=== PATIENT | female | born 1940 | race Caucasian/White ===

== ENCOUNTER 2017-12-15 14:12 | Outpatient (CLI) | payer MEDICARE ==
--- NOTE | 2017-12-15 15:24 | RAD ---
FOUR VIEWS LUMBAR SPINE: INDICATIONS: Low back pain. Difficulty walking for long periods of time. FINDINGS: There is levoscoliosis of the lumbar spine. There is multilevel disk degenerative disease. There is mild retrolisthesis of L3-L4, L2-L3, and L1-L2. This is slight accentuated with extension but does not appear to reduce with flexion. There is suggested aneurysmal dilatation of the abdominal aorta, measuring 3.7 cm. CTA abdomen was performed on 10/23/2015 and demonstrated an infrarenal abdominal a mike measuring to 2.8 cm. There is diffuse osteopenia. IMPRESSION: 1. Moderate multilevel spondylosis of the lumbar spine. 2. Retrolisthesis of L3 on L4, L2 on L3, and L1 on L2 that is accentuated with extension but does no t completely reduce with flexion. 3. Worsening infrarenal abdominal aortic aneurysm, measuring up to 3.7 cm. CODE T POS: [facility]
--- NOTE | 2017-12-15 15:48 | MRI ---
MRI OF LUMBAR SPINE WITHOUT CONTRAST 12/15/17 INDICATION: Low back pain for ten years with difficulty walking. COMPARISON: Lumbar spine radiographs dated 12/15/17. FINDINGS: There is slight retrolisthesis of L3 on L4, L2 on L3 and L1 on L2. 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 The conus is seen to terminate at approximately T12-L1. There is mild aneurysmal dilatation of the infrarenal abdominal aorta measuring approximately 3.1 cm in size. There are small bilateral maria e l cysts. At L5-S1, there is moderate to severe bilateral facet joint degenerative change. There is no apprecia ble central canal or neural foraminal narrowing. At L4-5, there is a broad based bulge with a superimposed right paracentral right foraminal protrusio n. The broad based bulge and facet hypertrophy at this level induces mild right neural foraminal narr owing. The protrusion causes some mild narrowing of the right lateral recess. At L3-4, there is a mild broad based bulge without appreciable central canal or definite neural jose alberto inal narrowing. At L2-3, there is no appreciable central canal or neural foraminal narrowing. There is mild based bul ge. At L1-3, there is a mild broad based bulge with facet hypertrophy without appreciable central canal o r neural foraminal narrowing. At T12-L1, there is no appreciable central canal or neural foraminal narrowing. IMPRESSION: 1. Multilevel spondylosis of the lumbar spine. 2. Mild retrolisthesis of L3 on L4, L2 on L3, L1 on L2. 3. Right paracentral to right foraminal protrusion and broad based disc bulge at L4-5 inducing m ild right lateral recess narrowing and mild right neural foraminal narrowing. 4. Infrarenal abdominal aortic aneurysm measuring up to 3.1 cm. This is slightly more pronounced than seen on a comparison CTA of the aorta dated 10/13/15 where it measured 2.8 cm. POS: [facility]
== END 2017-12-15 14:13 | disposition home or self-care (01) ==
LOC: TBSIIMAG 14:12
PROVIDERS: ATTEND Surgery
DX: M47.26 Other spondylosis with radiculopathy, lumbar region (principal); M43.16 Spondylolisthesis, lumbar region; I71.4 Abdominal aortic aneurysm, without rupture
CPT/HCPCS: 72110; 72148

== ENCOUNTER 2018-03-01 13:16 | Outpatient (CLI) | payer MEDICARE ==
[2018-03-01 14:57] LABS: Mean Corpuscular HGB CONC 34.5 g/dL (32.0-36.0); Mean Corpuscular Hemoglobin 31.4 pg (27.0-31.0); Mean Corpuscular Volume 91.1 fL (78.0-98.0); Mean Platelet Volume 7.7 fL (7.4-10.4); Platelet Count 238 thou/uL (130-400); RBC Distribution Width 13.2 % (11.5-14.5); Red Blood Cell (RBC) Count 4.76 mill/uL (4.20-5.40); White Blood Cell (WBC) Count 6.7 thou/uL (4.8-10.8)
[2018-03-01 15:16] LABS: INR-International Normal Ratio 0.9; PTT 24.5 SEC (22.9-36.1); Prothrombin Time 12.1 SEC (12.0-14.7)
[2018-03-01 15:20] LABS: Anion Gap 10 mmol/L (10-20); BUN (Urea Nitrogen) 19 mg/dL (9.8-20.1); Calc. Creatinine Clearance 0 mL/min (70-130); Calcium 9.4 mg/dL (7.8-10.44); Carbon Dioxide 30 mmol/L (23-31); Chloride 102 mmol/L (98-107); Estimated GFR-MDRD 67; Glucose 68 mg/dL (83-110); Potassium 4.7 mmol/L (3.5-5.1); Sodium 137 mmol/L (136-145)
== END 2018-03-01 13:17 | disposition home or self-care (01) ==
LOC: LABBT 13:16
PROVIDERS: ATTEND Surgery
DX: Z01.818 Encounter for other preprocedural examination (principal); M48.061 Spinal stenosis, lumbar region without neurogenic claudication; M54.16 Radiculopathy, lumbar region
CPT/HCPCS: 80048; 85027; 85610; 85730; 93005; 93010

== ENCOUNTER 2018-03-08 11:07 | Day surgery (SDC) | payer MEDICARE ==
[2018-03-08] MEDS ORDERED: CEFAZOLIN/Water 2 GM/20 ML SYRINGE ONE (11:57)
[2018-03-08] MEDS ORDERED: Fentanyl 250 MCG/5 ML VIAL ONE (12:15)
[2018-03-08] MEDS ORDERED: Sodium Chloride 0.9% 10 ML ONE (13:03)
[2018-03-08] MEDS ORDERED: Bacitracin Zinc Ointment 30 gm TUBE ONE (13:03)
[2018-03-08] MEDS ORDERED: Thrombin 5000 UNITS/5 ML VIAL ONE (13:03)
[2018-03-08] MEDS ORDERED: Glycopyrrolate 0.2 MG/ML 5 ML SYRINGE ONE ×2 (13:42)
[2018-03-08] MEDS ORDERED: PROPOFOL 200 MG/20 ML VIAL ONE (13:42)
[2018-03-08] MEDS ORDERED: PHENYLEPHRINE-NS 100 MCG/ML 10 ML SYRINGE ONE (13:42)
[2018-03-08] MEDS ORDERED: Lidocaine 1% PF 5 ML VIAL ONE (13:42)
[2018-03-08] MEDS ORDERED: Ondansetron HCl/PF 4 MG/2 ML Vial ONE (13:42)
[2018-03-08] MEDS ORDERED: Dexamethasone 20 MG/5 ML VIAL ONE (13:42)
[2018-03-08] MEDS ORDERED: Promethazine HCl 25 MG/ML VIAL IM PRN ×2 (16:21→16:29)
[2018-03-08] MEDS ORDERED: Mag-Al 1200 mg/1200 mg/30 ML UDCUP PO PRN (16:21)
[2018-03-08] MEDS ORDERED: Meperidine HCl/PF 25 MG/ML VIAL SLOW IVP PRN (16:21)
[2018-03-08] MEDS ORDERED: tiZANidine HCl 4 MG TAB PO PRN (16:21)
[2018-03-08] MEDS ORDERED: Acetaminophen 325 MG TAB PO PRN (16:21)
[2018-03-08] MEDS ORDERED: traMADol HCl 50 MG TAB PO PRN (16:21)
[2018-03-08] MEDS ORDERED: Bisacodyl 10 MG SUPP PR PRN (16:21)
[2018-03-08] MEDS ORDERED: Milk Of Magnesia 30 ML UDCUP PO PRN (16:21)
[2018-03-08] MEDS ORDERED: Fleet Enema 133 ML BOT PR PRN (16:21)
[2018-03-08] MEDS ORDERED: HYDROcodone/Acetaminophen 7.5/325 mg Tablet PO PRN (16:21)
[2018-03-08] MEDS ORDERED: Ketorolac Tromethamine 30 MG/ML VIAL ONE (16:24)
[2018-03-08] MEDS ORDERED: Fentanyl 100 MCG/2 ML VIAL ONE (16:24)
[2018-03-08] MEDS ORDERED: Ketorolac Tromethamine 30 MG/ML VIAL IVP PRN (16:29)
[2018-03-08] MEDS ORDERED: Promethazine HCl 25 MG/ML VIAL SLOW IVP PRN (16:29)
[2018-03-08] MEDS ORDERED: Ondansetron HCl/PF 4 MG/2 ML Vial IVP PRN (16:29)
[2018-03-08] MEDS: Sodium Chloride 0.9% 1,000 ML IV SCH (18:57)
[2018-03-08] MEDS: CEFAZOLIN/Water 2 GM/20 ML SYRINGE SLOW IVP SCH (20:34)
[2018-03-09 01:09] VITALS: BMI 34.4
[2018-03-09] MEDS: CEFAZOLIN/Water 2 GM/20 ML SYRINGE SLOW IVP SCH (05:49)
[2018-03-09] MEDS: Sodium Chloride 0.9% 1,000 ML IV SCH (07:00)
[2018-03-09 08:04] VITALS: BP 141/77; TEMP 98.8
--- NOTE | 2018-03-09 11:09 | PRG ---
DATE OF SERVICE: 03/09/2018 SUBJECTIVE: Ms. Cox is postoperative day #01 from L4-L5 laminectomy, partial facetectomy, foraminot bernardo. She is doing very well with resolution in her leg pain with good strength. She is mobilizing. We will plan to dismiss. We went over intra and postoperative issues.
--- NOTE | 2018-03-09 12:34 | OP ---
DATE OF SERVICE: 03/08/2018 SURGEON: Domenico Alaniz M.D. DATA MANAGEMENT SPECIALIST: Jf Moore PA-C. PREPROCEDURE DIAGNOSES: Lumbar stenosis with low back and right greater than left lower extremity pa in. POSTPROCEDURE DIAGNOSES: Lumbar stenosis with low back and right greater than left lower extremity p ain. PROCEDURES: L4-L5 laminectomy, partial facetectomy, foraminotomies L4-L5. DESCRIPTION OF PROCEDURE: After informed consent was obtained from the patient, the patient brought to OR 11. Proper patient pause and identification was carried out. She was placed in an accident an d endotracheal anesthesia, positioned prone on the OR table. All appropriate points were padded. We identified the L4-L5 dorsal spines. A linear patricio was made over this region. This area sterilely c leansed, prepared, and draped. Proper patient pause and identification was carried out. The wound w as opened, a combination of monopolar and blunt dissection. The L4, L5 segments exposed. We then pe rformed localization film to confirm our area of interest L4-L5. L4 laminectomy was then performed a nd we had excellent decompression of the common dural tube and the L4-L5 nerve roots. Copious irriga tion occurred throughout. We then hemostased the wound and was closed in anatomic layers following s prinkling of vancomycin powder. The patient then emerged from anesthesia.
[2018-03-10] MEDS ORDERED: Prevnar 13-Val Conj/PF 0.5 ML SYRINGE IM ONE (09:00)
== END 2018-03-09 10:35 | disposition home or self-care (01) ==
LOC: SDC 11:07 → SURG B 17:50 → UNDOADMOB 17:50 → SURG B 17:50 → UNDODISOB 03-09 10:35 → SDC 03-09 10:35
PROVIDERS: ATTEND Surgery
PROC: 01NB0ZZ Release Lumbar Nerve, Open Approach (ICD-10-PCS; principal; 2018-03-08)
DX: M48.061 Spinal stenosis, lumbar region without neurogenic claudication (principal); Z88.5 Allergy status to narcotic agent; Z88.8 Allergy status to other drugs, medicaments and biological substances
CPT/HCPCS: 76001; 96374; A4216; J0131; J1100; J1885; J2001; J2405; J2704; J3010; J3370; J3490

== ENCOUNTER 2020-07-13 13:45 | Emergency (ER) | payer MEDICARE ==
--- NOTE | 2020-07-13 15:22 | CT ---
CT CERVICAL SPINE NONCONTRAST: DATE: 07/13/2020 HISTORY: 80-year-old female presents to ER with left-sided cervicalgia FINDINGS: Cluster of large number of prominent arachnoid granulations in the occipital bone. There are no jumped or perched facets. There is no evidence of acute fracture. The vertebral body hei ghts are maintained. There is no prevertebral soft tissue swelling. There are degenerative disc changes and facet osteoarthrosis. C1-2: Moderate degenerative changes at atlantoaxial odontoid junction. No high-grade DJD at atlantooc cipital joints or atlantoaxial joints. No high-grade central spinal canal stenosis. Small degenerative pseudopannus posterior to odontoid. C2-3: No high-grade disc space narrowing. Moderate to severe right facet DJD with severe joint space narrowing, questionably ankylosed. Mild left facet DJD. No central or neural foraminal stenosis. C3-4: No high-grade disc space narrowing. Severe right and moderate to severe left facet DJD causes m ild grade 1 anterolisthesis of C3 on C4. Mild disc bulge. No central or right neural foraminal stenosis. Small bilateral uncinate process osteophytes. Mild left neural foraminal stenosis. C4-5: Mild disc space narrowing. Severe bilateral facet DJD, right greater than left, causes mild gra de 1 anterolisthesis of C4 on C5. Mild disc bulge. Small-moderate bilateral uncinate process osteophytes. Moderate bilateral neural foraminal stenosis. C5-6: Mild to moderate disc space narrowing. Mild right and severe left facet DJD. Mild grade 1 anter olisthesis of C5 on C6. Moderate to large bilateral uncinate process osteophytes, left greater than right. Mild to moderate right and moderate to severe left neural foraminal stenosis. Mild central spi nal canal stenosis. C6-7: Moderate disc space narrowing mild right and moderate left facet DJD. Moderate right and modera te to large left uncinate process osteophytes. Moderate to severe right and severe left neural foraminal stenosis. Mild to moderate central spinal canal stenosis. C7-T1: No high-grade disc space narrowing. Mild right and mild to moderate left facet DJD. No central or neural foraminal stenosis. IMPRESSION: 1) Cervical spondylosis consisting of multilevel high-grade bilateral facet osteoarthrosis, and mild to moderate degenerative disc disease. 2) no evidence of acute fracture or acute traumatic subluxation.
== END 2020-07-13 16:15 | disposition home or self-care (01) ==
LOC: ERS 13:45
DX: M19.09 Primary osteoarthritis, other specified site (principal); F17.210 Nicotine dependence, cigarettes, uncomplicated
CPT/HCPCS: 72125

== ENCOUNTER 2020-07-27 12:44 | Outpatient (CLI) | payer MEDICARE ==
[~2020-07-27 12:44] MED LIST: Iopamidol 370 76% 100 ML VIAL ONE
--- NOTE | 2020-07-27 13:55 | RAD ---
CERVICAL SPINE 5 VIEWS: Date: 07/27/2020 HISTORY: Neck pain. FINDINGS: Cervical vertebra maintain height and alignment. Mild loss of disc space at the C5-6 and C6-7 levels. Mild to moderate degenerative spurring from these levels. Slight anterolisthesis at the C5-6 level w hich does not appear to significantly change with flexion or extension. IMPRESSION: There are mild to moderate degenerative changes at C5-6 and C6-7. POS: [facility]
--- NOTE | 2020-07-27 13:57 | RAD ---
LUMBAR SPINE 4 VIEWS: Date: 07/27/2020 HISTORY: Back pain. FINDINGS: Lumbar vertebra maintain height. The disc spaces are preserved. There are mild to moderate degenerati ve spurring from the lumbar vertebra. Prominent facet hypertrophy. Anterolisthesis of L5 on S1 appears stable with flexion and extension. Aorta is calcified and is aneurysmal with diameter measuring up to 3.5 cm. IMPRESSION: 1. Moderate degenerative changes of the lumbar spine with anterolisthesis at L5-S1. 2. Aneurysmal dilatation of the abdominal aorta. POS: [facility]
--- NOTE | 2020-07-27 14:01 | MRI ---
MRI CERVICAL SPINE WITHOUT CONTRAST: Date: 07/27/2020 INDICATION: Neck pain. FINDINGS: Cervical vertebra maintain height and alignment. Disc spaces are preserved. There is mild degenerativ e spurring. C2-3: No significant disc bulge or spondylosis. C3-4: Mild disc bulge and spondylosis. Anterior subarachnoid space is generous and there is no centr al canal or foraminal stenosis. C4-5: Mild disc bulge and spondylosis mildly flatten the anterior thecal sac. The anterior subarachn oid space is preserved. No central canal or foraminal stenosis. C5-6: Mild disc bulge and spondylosis flatten the thecal sac and mildly efface the anterior subarach noid space. No central canal stenosis. Foramina appear patent. C6-7: Disc bulge and spondylosis efface the anterior subarachnoid space and are slightly more promin ent than the other levels; however, no cord impingement or central canal stenosis. There may be mild foraminal narrowing at this level due to uncinate hypertrophy. Cervical cord signal is normal. IMPRESSION: Posterior disc bulge and spondylytic changes are seen at multiple levels, most prominent at C6-7. How ever, these changes do not impinge on the cord and there is no evidence of central canal stenosis. POS: [facility]
--- NOTE | 2020-07-27 14:54 | CT ---
CTA Angio Head W WO Con CT brain without contrast History: Headaches Comparison: None. Technique: CT brain performed without contrast. Subsequently after the intravenous administration of contrast CT angiogram of the head was performed. 3-D rendering provided. CT brain without contrast: Senile calcifications of the basal ganglia. No acute hemorrhage. No midline shift or mass effect. Moderate microvascular ischemic changes, chronic. Calvarium is intact. Arachnoid granulations along the occiput. Globes are intact. No retrobulbar hematoma. IMPRESSION: No acute intracranial abnormality. No acute hemorrhage or infarct. CT angiogram head with contrast: The right vertebral appears to terminate in the PICA. The posterior cerebral arteries are patent. Cir [place] of [place] is without stenosis, thrombosis or aneurysm formation. The transverse sinuses are patent. Superior sagittal sinus is patent. IMPRESSION: No [place] stenosis, thrombosis or aneurysm formation.
== END 2020-07-27 12:45 | disposition home or self-care (01) ==
LOC: TBSIIMAG 12:44
PROVIDERS: ATTEND Surgery
DX: M54.2 Cervicalgia (principal); M54.5 Low back pain; R51.9 Headache, unspecified; M47.816 Spondylosis without myelopathy or radiculopathy, lumbar region; M43.17 Spondylolisthesis, lumbosacral region; I71.4 Abdominal aortic aneurysm, without rupture; M47.812 Spondylosis without myelopathy or radiculopathy, cervical region; M46.92 Unspecified inflammatory spondylopathy, cervical region; M50.81 Other cervical disc disorders, high cervical region
CPT/HCPCS: 70496; 72050; 72120; 72141; 82565; Q9967